=== PATIENT | female | born 1960 | race Caucasian/White ===

== ENCOUNTER 2024-08-13 14:01 | Emergency (ER) | payer OTHER ==
[~2024-08-13] VITALS: Ht 170.2 cm; Wt 63.5 kg
[2024-08-13 14:19] VITALS: O2SAT 99
[2024-08-13] MEDS ORDERED: TRIA60LO17 TP (16:32)
[2024-08-13 16:39] LABS: BASOPHILS % 0.5 % (0.0-2.0); EOSINOPHILS % 1.4 % (0.0-5.0); HEMATOCRIT. 39.2 % (36.0-48.0); LYMPHOCYTES % 28.9 % (20.0-50.0); MEAN CORPUSCULAR HEMOGLOBIN 31.1 pg (28.0-32.0); MEAN CORPUSCULAR HGB CONC 33.1 g/dL (31.0-37.0); MEAN CORPUSCULAR VOLUME 94.1 fL (81.0-99.0); MEAN PLATELET VOLUME 7.8 fl (7.4-10.4); MONOCYTES % 5.5 % (2.0-8.0); NEUTROPHILS % 63.7 % (40.0-76.0); PLATELET 258 x1000/uL (130-400); RED BLOOD CELL COUNT 4.16 mill/uL (4.2-5.4); RED CELL DISTRIBUTION WIDTH 14.7 % (11.6-14.6); WHITE BLOOD COUNT 4.9 x1000/uL (4.5-11.0)
[2024-08-13 16:44] LABS: CARBON DIOXIDE 24 mEq/L (21-32); CHLORIDE 108 mEq/L (98-107); POTASSIUM 3.9 mEq/L (3.5-5.1); SODIUM 140 mEq/L (136-145)
[2024-08-13] MEDS ORDERED: CETI10TA6 MT (16:44)
[2024-08-13 16:45] LABS: CALCIUM 10.1 mg/dL (8.7-10.4)
[2024-08-13] MEDS ORDERED: DEXAMETHASONE 1MG TABLET PO ONE (16:45)
[2024-08-13 16:49] LABS: CREATININE 0.8 mg/dL (0.6-1.0); GLUCOSE 92 mg/dL (70-105)
[2024-08-13 16:50] LABS: UREA NITROGEN BLOOD 8 mg/dL (9-23)
[2024-08-13] MEDS: DEXAMETHASONE 4MG TABLET PO NR (17:24)
[2024-08-13 17:31] VITALS: BP 128/77; PULSE 88; RESP 18; TEMP 36.8; O2SAT 98
== END 2024-08-13 17:32 | disposition home or self-care (01) ==
LOC: ER 14:01
DX: R21 Rash and other nonspecific skin eruption (principal); I10 Essential (primary) hypertension; M19.90 Unspecified osteoarthritis, unspecified site; Z98.51 Tubal ligation status
CPT/HCPCS: 99283; 80048; 85025; 36415; J8540